=== PATIENT | female | born 1975 | race Caucasian/White ===

== ENCOUNTER 2017-12-14 18:36 | Emergency (ER) | payer OTHER ==
[~2017-12-14] VITALS: Ht 180.3 cm; Wt 104.3 kg
[~2017-12-14 18:36] MED LIST: (None)20 M1 PO; ALBU90OI INH; AMLO10 PO; AMOCLA875 PO; ATOR10 PO; Amlodipine Besy10 MG PO; BENTYL10 MG PO; BUPR150ER PO; CLON.5 PO; CLON1 PO; CYCL10 PO; Cyclobenzaprine5 MG PO; ESCI10 PO; ESCI20 PO; ESTR.1TPBW TOP; ESTR2 PO; ESTRADIOL1 MG PO; ESTROGEN PATCH; Estradiol1 MG PO; GABA300 PO; GABA800 PO; IBUP800 PO; KETO10 PO; Klonopin1 MG PO; LISI20 PO; MELO7.5 PO; METRIBP PO; Naprosyn500 MG PO; Norco 10-325 T1 EACH PO; Norco 5-325 Ta1 EACH PO; PROM25 PO; Percocet 5-3251 EACH PO; Prednisone20 MG PO; Prilosec Otc20 MG PO; QUET100 PO; QUET200 PO; SPACE CHAMBER1 EACH MC; SULI150 PO; SULTRIDS PO; Seroquel400 MG PO; Synthroid25 MCG PO; VENL75ER PO; ZESTRIL40 MG PO; Zofran Odt4 MG PO; Zofran Odt4 MG SL
== END 2017-12-14 19:31 | disposition home or self-care (01) ==
LOC: ER 18:36
DX: G89.29 Other chronic pain (principal); M54.5 Low back pain; Z88.8 Allergy status to other drugs, medicaments and biological substances; Z79.899 Other long term (current) drug therapy; I10 Essential (primary) hypertension; F32.9 Major depressive disorder, single episode, unspecified; F41.9 Anxiety disorder, unspecified; E03.9 Hypothyroidism, unspecified
CPT/HCPCS: 99283

== ENCOUNTER 2017-12-19 09:48 | Day surgery (SDC) | payer OTHER ==
[~2017-12-19] VITALS: Ht 180.3 cm; Wt 103.4 kg
[2017-12-20] MEDS ORDERED: ROXICODONE5 MG PO (07:31)
== END 2017-12-20 08:48 | disposition home or self-care (01) ==
LOC: ORSCMMR 09:48 → ORD 11:45 → ORSCMMR 11:45 → SURS 15:25 → ORSCMMR 12-20 08:48
PROVIDERS: Orthopaedic Surgery
PROC: 01NB0ZZ Release Lumbar Nerve, Open Approach (ICD-10-PCS; principal; 2017-12-19 11:45)
PROC: 0SB20ZZ Excision of Lumbar Vertebral Disc, Open Approach (ICD-10-PCS; principal; 2017-12-19 11:45)
DX: M51.16 Intervertebral disc disorders with radiculopathy, lumbar region (principal); I10 Essential (primary) hypertension; K21.9 Gastro-esophageal reflux disease without esophagitis; E11.9 Type 2 diabetes mellitus without complications; E66.9 Obesity, unspecified; Z68.32 Body mass index [BMI] 32.0-32.9, adult; Z79.899 Other long term (current) drug therapy
CPT/HCPCS: 88304; J0171; J0690; J1100; J1170; J1885; J2250; J2270; J2405; J3010; J3370; J7120

== ENCOUNTER → 2018-02-09 | Outpatient (CLI) | payer OTHER ==
[~2018-02-09] MED LIST changes: +ROXICODONE5 MG PO
== END | disposition home or self-care (01) ==
LOC: LAB EV 18:39 → LAB SHORT 18:39
DX: L02.411 Cutaneous abscess of right axilla (principal)
CPT/HCPCS: 87070; 87075; 87077; 87147; 87186; 87205

== ENCOUNTER 2019-01-10 06:44 | Day surgery (SDC) | payer OTHER ==
[~2019-01-10] VITALS: Ht 180.3 cm; Wt 107.2 kg
[~2019-01-10 06:44] MED LIST changes: +BUPRENORPHIN-N1 EACH SL; +Budeprion Xl300 MG PO; +GABA100 PO; +HYDPAM25 PO; +LEVSOD50 PO; +METF500C PO; +NARCAN4 MG; +QUETIAPINE FUM400 MG PO
[2019-01-10] MEDS ORDERED: BUPR150ER PO (07:34)
--- NOTE | 2019-01-10 08:44 | NUR ---
01/10/19 0844 Halie Dillard [email or web address] RIGHT PREP [email or web address].JAR LEFT PREP
== END 2019-01-10 10:30 | disposition home or self-care (01) ==
LOC: ORSCSDS 06:44
PROVIDERS: Orthopaedic Surgery
PROC: 01N50ZZ Release Median Nerve, Open Approach (ICD-10-PCS; principal; 2019-01-10 08:15)
DX: G56.03 Carpal tunnel syndrome, bilateral upper limbs (principal); I10 Essential (primary) hypertension; E78.00 Pure hypercholesterolemia, unspecified; E11.9 Type 2 diabetes mellitus without complications; E03.9 Hypothyroidism, unspecified; E66.9 Obesity, unspecified; Z79.899 Other long term (current) drug therapy
CPT/HCPCS: 82947; J0690; J1885; J2250; J2405; J3010; J7120

== ENCOUNTER 2023-01-27 08:08 | Day surgery (SDC) | payer OTHER ==
[~2023-01-27] VITALS: Ht 180.3 cm; Wt 103.0 kg
--- NOTE | 2023-01-27 09:59 | NUR ---
Ambulatory in Day Surgery History, Chart, Medications and Allergies reviewed before start of procedure. Lungs clear T/O to Auscultation. Patient confirms NPO status and agrees with scheduled surgery. Pre-Op teaching done. Pt verbalizes understanding. Patient States Post-Procedure ride home has been arranged.
--- NOTE | 2023-01-27 10:15 | NUR ---
01/27/23 [place]5 Briana Wyatt ANESTHESIA WITH DR. PETTIT, SEE ANESTHESIA RECORDS.
--- NOTE | 2023-01-27 11:14 | NUR ---
REPORT RECEIVED FROM WILL COHEN RN. VSS. PT ABLE TO REPOSITION SELF IN BED. BOYFRIEND AT BEDSIDE. PT DENIES PAIN OR DISCOMFORT AT THIS TIME AND IS TOLERATING PO FLUIDS WELL.
--- NOTE | 2023-01-27 11:26 | NUR ---
Patient up to Ambulate independently. Gait steady. VSS AND CONSISTENT WITH PT BASELINE. Discharge instructions reviewed with patient. Patient verbalizes understanding. Copy given to patient to take home. Patient States Post-Procedure ride home has been arranged. Discharged via wheelchair to private car for ride home. PT BELONGINGS RETURNED TO PT.
== END 2023-01-27 11:33 | disposition home or self-care (01) ==
LOC: ORSCMMR 08:08 → ORD 10:00 → ORSCMMR 11:33
PROVIDERS: Internal Medicine Gastroenterology
PROC: 0DBL8ZX Excision of Transverse Colon, Via Natural or Artificial Opening Endoscopic, Diagnostic (ICD-10-PCS; principal; 2023-01-27 10:00)
DX: Z12.11 Encounter for screening for malignant neoplasm of colon (principal); Z80.0 Family history of malignant neoplasm of digestive organs; D12.3 Benign neoplasm of transverse colon; I10 Essential (primary) hypertension; G47.33 Obstructive sleep apnea (adult) (pediatric); E11.9 Type 2 diabetes mellitus without complications; F32.A Depression, unspecified; E03.9 Hypothyroidism, unspecified; Z79.899 Other long term (current) drug therapy
CPT/HCPCS: 82947; 88305; J2704; J7120